=== PATIENT | female | born 1930 | race Caucasian/White ===

== ENCOUNTER 2019-07-15 14:16 | Inpatient (IN) | payer MEDICARE, MEDICAID ==
[~2019-07-15] VITALS: Ht 160 cm; Wt 48.1 kg
--- NOTE | 2019-07-15 14:35 | NUR ---
gonzalo, from snf, failure to thrive x 2 days. Patient a/ox1, breathing even and unlabored, no sob noted. kept comfortable. Will continue to monitor.
[2019-07-15 14:57] LABS: BASOPHILS % (AUTO) 0.7 % (0.0-2.0); EOSINOPHILS % (AUTO) 1.2 % (0.0-6.0); HEMATOCRIT 41 % (33-45); HEMOGLOBIN 13.4 g/dL (11.5-14.8); LYMPHOCYTES # (AUTO) 1.3 /CMM (0.8-4.8); LYMPHOCYTES % (AUTO) 34.3 % (20.0-44.0); MEAN CORPUSCULAR HGB CONC 33 g/dl (31.0-36.0); MEAN CORPUSCULAR VOLUME 90 fL (82-100); MONOCYTES # (AUTO) 0.4 /CMM (0.1-1.30); MONOCYTES % (AUTO) 11.4 % (2.0-12.0); NEUTROPHILS % (AUTO) 52.4 % (43.0-81.0); PLATELET COUNT (AUTO) 193 /CMM (150-450); RED BLOOD CELL COUNT(AUTO) 4.54 MIL/uL (4.0-5.2); WHITE BLOOD COUNT (AUTO) 3.8 K/uL (4.3-11.0)
[2019-07-15] MEDS ORDERED: IV NS 0.9% 500 ML BAG IV ONE (15:00)
[2019-07-15] MEDS ORDERED: NUTR237L18 PO (15:26)
[2019-07-15] MEDS ORDERED: QUET25TA PO (15:26)
[2019-07-15] MEDS ORDERED: NA P133E RC (15:26)
[2019-07-15] MEDS ORDERED: DOCU-141 PO (15:26)
[2019-07-15] MEDS ORDERED: MAGN400O6 PO (15:26)
[2019-07-15] MEDS ORDERED: ASPI-605 PO (15:26)
[2019-07-15] MEDS ORDERED: MULT1TAB73 PO (15:26)
[2019-07-15] MEDS ORDERED: SENN-261 PO (15:26)
[2019-07-15] MEDS ORDERED: ACET-868 PO (15:26)
[2019-07-15] MEDS ORDERED: BISA10SU61 RC (15:26)
[2019-07-15 15:28] LABS: CALCIUM, SERUM 9.2 mg/dL (8.5-10.1); CARBON DIOXIDE 24 mmol/L (21-32); CHLORIDE 104 mmol/L (98-107); CREATININE 0.9 mg/dL (0.6-1.3); GLUCOSE 167 mg/dL (74-106); POTASSIUM 3.6 mmol/L (3.5-5.1); SODIUM SERUM 137 mmol/L (136-145); UREA NITROGEN, BLOOD 18 mg/dL (7-18)
[2019-07-15 15:41] LABS: ALANINE AMINOTRANSFERASE 12 U/L (12-78); ALBUMIN 2.9 g/dL (3.4-5.0); ALKALINE PHOSPHATASE 133 U/L (46-116); ASPARTATE AMINOTRANSFERASE 16 U/L (15-37); B-TYPE NATRIURETIC PEPTIDE 477 PG/ML (0-125); BILIRUBIN,DIRECT 0.1 mg/dL (0.0-0.2); BILIRUBIN,TOTAL 0.3 mg/dL (0.2-1.0); TOTAL PROTEIN, SERUM 6.8 g/dL (6.4-8.2)
--- NOTE | 2019-07-15 16:10 | NUR ---
[facility] paged
--- NOTE | 2019-07-15 16:13 | NUR ---
tele bed requested from nursing research greenhouse supervisor.
[2019-07-15] MEDS ORDERED: MAG HYDROX/AL HYDROX/SIMETH 30 ML UDC PO PRN (16:30)
[2019-07-15] MEDS ORDERED: BISACODYL SUPP (10 MG) 10 MG/SUPP.RECT SUPP.RECT RC PRN (16:30)
[2019-07-15] MEDS ORDERED: HYDROCODONE/APAP 5/325MG 1 EACH TABLET PO PRN (16:30)
[2019-07-15] MEDS ORDERED: ZOLPIDEM TARTRATE 5 MG TABLET PO PRN (16:30)
[2019-07-15] MEDS ORDERED: NA PHOS,M-B/NA PHOS,DI-BA 1 EA ENEMA RC PRN (16:30)
[2019-07-15] MEDS ORDERED: MAGNESIUM HYDROXIDE 30 ML UDC PO PRN ×2 (16:30)
[2019-07-15] MEDS ORDERED: ONDANSETRON HCL/PF 4 MG/2 ML VIAL IVP PRN (16:30)
[2019-07-15] MEDS ORDERED: Z GUARD REMEDY 2 OZ OINT TP PRN (16:30)
[2019-07-15] MEDS ORDERED: ACETAMINOPHEN 325 MG TABLET PO PRN (16:30)
--- NOTE | 2019-07-15 16:41 | NUR ---
NURSING SUP GAVE M/S BED 203.
--- NOTE | 2019-07-15 17:10 | NUR ---
REPORT GIVEN TO SAMMIE DAWSON.
[2019-07-15 17:45] VITALS: BP 116/94
[2019-07-15] MEDS: DOCUSATE SODIUM 100 MG CAPSULE PO SCH (17:47)
[2019-07-15] MEDS: QUETIAPINE FUMARATE 25 MG TABLET PO SCH (17:47)
[2019-07-15] MEDS: ENOXAPARIN SODIUM 40 MG/0.4 ML DISP.SYRIN SQ SCH (17:48)
[2019-07-15] MEDS: PROSOURCE / PROSTAT (PYXIS) 30 ML UDC PO SCH (17:50)
[2019-07-15 18:00] VITALS: BP 116/64
--- NOTE | 2019-07-15 18:00 | NUR ---
MS RN ADMITTING NOTES PT ADMITTED TO UNIT @1715 VIA WHEELCHAIR ACCOMPANIED BY ROSALINDA SALAS. PT ABLE TO WALK WITH ASSISTANCE FROM W/C TO BED. PT IS A/O X1, FARSI SPEAKING AND CONFUSED. PT ORIENTED TO ROOM AND STAFF. V/S TAKEN AND RECORDED. PT ADMITTED WITH DX OF FAILURE TO THRIVE. IV ACCESS NOTED AT RIGHT FA G#20 INTACT, PATENT AND FLUSHES WELL. PT WITH PACEMAKER IN PLACE TO UPPER LEFT CHEST WALL. PHOTOS OF SKIN ISSUES TAKEN AND FILED IN CHART. LUNGS CLEAR ON AUSCULTATION. ABDOMEN SOFT AND NON-TENDER WITH POSITIVE BOWEL SOUNDS ON FOUR QUADRANTS. SAFETY MEASURES INITIATED: BED PLACED IN LOWEST LOCKED POSITION WITH SR UP X2. BED ALARM ON AND CALL LIGHT WITHIN REACH. WILL CONTINUE TO MONITOR PT ACCORDINGLY.
--- NOTE | 2019-07-15 18:48 | NUR ---
MS RN CLOSING NOTES PT IN BED AWAKE AND RESTING AT MODERATE HIGH BACKREST AT THIS TIME. A/O X1, FARSI SPEAKING, CALM AND QUIET AT THIS TIME. PT ORIENTED TO ROOM AND STAFF. V/S TAKEN AND RECORD IV SL ON RIGHT FA G#20 INTACT, PATENT AND FLUSHES WELL. SAFETY MEASURES IN PLACE: BED IN LOWEST LOCKED POSITION WITH SR UP X2. BED ALARM ON AND CALL LIGHT WITHIN REACH. WILL ENDORSE TO SALESFORCE DEVELOPER NURSE FOR DEXTER.
--- NOTE | 2019-07-15 19:30 | NUR ---
RN OPEN NOTES RECEIVED PATIENT RESTING IN BED, EASILY AROUSABLE. A/OX1. NO SIGNS OF DISTRESS OR DISCOMFORT. BREATHING EVEN AND UNLABORED. IV ACCESS IN RFA, PATENT AND INTACT, NO SIGNS OF REDNESS OR INFILTRATION. BED IN LOW LOCKED POSITION WITH SIDE RAILS X2. BED ALARM ON. CALL LIGHT WITHIN REACH. WILL CONTINUE TO MONITOR.
[2019-07-15 20:44] VITALS: BP 112/68
[2019-07-15] MEDS: SENNOSIDES 8.6 MG TABLET PO SCH (21:28)
[2019-07-16 06:23] LABS: BASOPHILS % (AUTO) 0.6 % (0.0-2.0); EOSINOPHILS % (AUTO) 2.1 % (0.0-6.0); HEMATOCRIT 41 % (33-45); HEMOGLOBIN 13.3 g/dL (11.5-14.8); LYMPHOCYTES # (AUTO) 1.3 /CMM (0.8-4.8); LYMPHOCYTES % (AUTO) 35.1 % (20.0-44.0); MEAN CORPUSCULAR HGB CONC 33 g/dl (31.0-36.0); MEAN CORPUSCULAR VOLUME 90 fL (82-100); MONOCYTES # (AUTO) 0.5 /CMM (0.1-1.30); MONOCYTES % (AUTO) 13.1 % (2.0-12.0); NEUTROPHILS # (AUTO) 1.9 /CMM (1.8-8.9); NEUTROPHILS % (AUTO) 49.1 % (43.0-81.0); PLATELET COUNT (AUTO) 184 /CMM (150-450); WHITE BLOOD COUNT (AUTO) 3.8 K/uL (4.3-11.0)
[2019-07-16 07:04] LABS: CALCIUM, SERUM 8.4 mg/dL (8.5-10.1); CREATININE 0.6 mg/dL (0.6-1.3); POTASSIUM 3.7 mmol/L (3.5-5.1)
[2019-07-16 07:23] LABS: THYROID STIMULATING HORMONE 0.878 uIU/mL (0.358-3.74)
--- NOTE | 2019-07-16 07:41 | NUR ---
WOUND CARE CONSULT: PT PRESENTS WITH RT LATERAL ANKLE SCAR, PRESENT ON ADMISSION. PT NOTED TO BE INCONTINENT. RECOMMENDATIONS MADE FOR SKIN PROTECTION. DISCUSSED WITH NURSING STAFF. WILL SEE PRN. LOPEZ IN AGREEMENT WITH PLAN OF CARE. Addendum: 07/16/19 at 0742 by MARICHUY HERNANDEZ WNDNU Amended: Links added.
[2019-07-16 08:00] VITALS: BP 134/73
[2019-07-16 08:56] VITALS: BP 134/73
[2019-07-16] MEDS: PROSOURCE / PROSTAT (PYXIS) 30 ML UDC PO SCH ×3 (09:00→17:00)
[2019-07-16] MEDS: ASPIRIN EC 81 MG TABLET.DR PO SCH (09:12)
[2019-07-16] MEDS: QUETIAPINE FUMARATE 25 MG TABLET PO SCH ×2 (09:12→17:25)
[2019-07-16] MEDS: MULTIVITAMINS,THERAGRAN 1 UDTAB TABLET PO SCH (09:13)
[2019-07-16] MEDS: DOCUSATE SODIUM 100 MG CAPSULE PO SCH ×2 (09:13→17:25)
--- NOTE | 2019-07-16 10:20 | NUR ---
Unable to obtain urine sample due to pt confusion
--- NOTE | 2019-07-16 15:12 | NUR ---
PAtient refused straight catheter, unable to educate due to pt's confusion
[2019-07-16 16:13] VITALS: BP 158/83
--- NOTE | 2019-07-16 18:47 | NUR ---
Patient resting in bed awake , A/Ox1. Breathing unlabored and even on room air, saturating above 96%. All needs attended , safety precautions in place, bed alarm activated. Will endorse to next shift for DEXTER
--- NOTE | 2019-07-16 19:25 | NUR ---
RN OPEN NOTES RECEIVED AWAKE SITTING IN BED. A/OX1. NO SIGNS OF DISTRESS OR DISCOMFORT. BREATHING EVEN AND UNLABORED. IV ACCESS IN RFA, PATENT AND INTACT, NO SIGNS OF REDNESS OR INFILTRATION. BED IN LOW LOCKED POSITION WITH SIDE RAILS X2. BED ALARM ON. CALL LIGHT WITHIN REACH. WILL CONTINUE TO MONITOR.
[2019-07-16 20:32] VITALS: BP 145/69
[2019-07-16] MEDS: ENOXAPARIN SODIUM 40 MG/0.4 ML DISP.SYRIN SQ SCH (21:09)
[2019-07-16] MEDS: SENNOSIDES 8.6 MG TABLET PO SCH (21:09)
[2019-07-17 04:57] LABS: APPEARANCE,URINE CLEAR (CLEAR); BILIRUBIN,URINE NEGATIVE (NEGATIVE); BLOOD, URINE NEGATIVE Ery/uL (NEGATIVE); COLOR,URINE YELLOW (YELLOW); KETONES,URINE TRACE (NEGATIVE); LEUKOCYTE ESTERASE ,URINE NEGATIVE (NEGATIVE); NITRITE, URINE NEGATIVE (NEGATIVE); PROTEIN,URINE NEGATIVE (NEGATIVE); UGLUCOSE NEGATIVE (NEGATIVE)
[2019-07-17 05:03] LABS: BACTERIA,URINE Few /HPF (None Seen); RBC,URINE 0-2 /HPF (0-2); SQUAMOUS EPITHELIAL CELL,UR Few /HPF (None Seen)
--- NOTE | 2019-07-17 06:36 | NUR ---
RN CLOSING NOTES PATIENT RESTING IN BED, EASILY AROUSABLE. A/OX1. NO SIGNS OF DISTRESS OR DISCOMFORT. BREATHING EVEN AND UNLABORED. IV ACCESS IN RFA, PATENT AND INTACT, NO SIGNS OF REDNESS OR INFILTRATION. ALL NEEDS MET. NO SIGNIFICANT CHANGES THROUGH THE NIGHT. PATIENT KEPT CLEAN DRY AND COMFORTABLE. BED IN LOW LOCKED POSITION WITH SIDE RAILS X2. BED ALARM ON. CALL LIGHT WITHIN REACH. WILL ENDORSE TO AM SHIFT FOR DEXTER.
--- NOTE | 2019-07-17 07:30 | NUR ---
RN MS NOTES PT IN BED, AWAKE, ALERT AND VERBALLY RESPONSIVE, DENIES PAIN, NOT IN DISTRESS, ASSISTED WITH BREAKFAST, CALL LIGHT WITHIN REACH, NEEDS ATTENDED.
[2019-07-17 08:00] VITALS: BP 128/54
[2019-07-17] MEDS: MULTIVITAMINS,THERAGRAN 1 UDTAB TABLET PO SCH (08:34)
[2019-07-17] MEDS: DOCUSATE SODIUM 100 MG CAPSULE PO SCH ×2 (08:34→16:56)
[2019-07-17] MEDS: ASPIRIN EC 81 MG TABLET.DR PO SCH (08:34)
[2019-07-17] MEDS: QUETIAPINE FUMARATE 25 MG TABLET PO SCH ×2 (08:35→16:56)
[2019-07-17] MEDS: PROSOURCE / PROSTAT (PYXIS) 30 ML UDC PO SCH ×3 (08:40→17:00)
--- NOTE | 2019-07-17 10:52 | NUR ---
RN MS NOTES PT SEEN BY PHYSICAL THERAPIST, ABLE TO AMBULATE WITH A WALKER ALONG THE HALLWAY, TOLERATED WELL.
[2019-07-17] MEDS: ENSURE ENLIVE 237 ML LIQUID (VANILLA) PO SCH ×2 (12:39→16:56)
--- NOTE | 2019-07-17 15:23 | NUR ---
RN MS NOTES PT IN BED, RESTING, ALERT TO SELF, VERBALLY RESPONSIVE, NOT IN DISTRESS, WITH POOR PO INTAKE, DR. CH INFORMED, ORDERED PSYCH CONSULT, NOTED AND CARRIED OUT.
[2019-07-17 16:00] VITALS: BP 135/69
--- NOTE | 2019-07-17 18:21 | NUR ---
RN MS NOTES PT IN BED, RESTING, AWAKE, ALERT TO SELF, NO SIGN OF PAIN OR DISTRESS, CALL LIGHT WITHIN REACH, ENCOURAGED PO INTAKE, ABLE TO EAT SOME, FLUIDS ENCOURAGED, PM CARE PROVIDED, NEEDS ATTENDED.
--- NOTE | 2019-07-17 19:05 | NUR ---
MS RN NOTE RECEIVED PT IN STABLE CONDITION A/O X 1-2, NOTED IN BED, NO SIGNS OF SOB OR DISTRESS, NO INDICATIONS PAIN OR N/V. IV IN RFA #[address] S/L. ALL CURRENT NEEDS ATTENDED TO. BED LOW, LOCKED, UPPER RAILS UP, AND CALL LIGHT WITHIN REACH. WILL CONT. TO MONITOR.
[2019-07-17] MEDS: ENOXAPARIN SODIUM 40 MG/0.4 ML DISP.SYRIN SQ SCH (21:11)
[2019-07-17] MEDS: SENNOSIDES 8.6 MG TABLET PO SCH (21:11)
--- NOTE | 2019-07-18 06:26 | NUR ---
MS RN NOTE PT REMAINS IN STABLE CONDITION A/O X 1-2, NOTED IN BED, NO SIGNS OF SOB OR DISTRESS, NO INDICATIONS PAIN OR N/V. IV IN RFA #[address] S/L. ALL CURRENT NEEDS ATTENDED TO. BED LOW, LOCKED, UPPER RAILS UP, AND CALL LIGHT WITHIN REACH. WILL CONT. TO MONITOR AND ENDORSE TO NEXT SHIFT FOR DEXTER
--- NOTE | 2019-07-18 07:39 | NUR ---
MS RN OPENING NOTE PATIENT IN BED RESTING COMFORTABLY. PATIENT IN NO ACUTE DISTRESS. NO SOB NOTED. PATIENT BREATHING IS EVEN AND UNLABORED. PATIENT BED ALARM IS ON. SAFETY PRECAUTIONS IN PLACE. PATIENT BED IS LOCKED AND IN LOWEST POSITION. CALL LIGHT WITHIN REACH. WILL CONTINUE TO MONITOR.
[2019-07-18 07:55] VITALS: BP 140/68
[2019-07-18] MEDS: QUETIAPINE FUMARATE 25 MG TABLET PO SCH ×2 (08:47→16:19)
[2019-07-18] MEDS: PROSOURCE / PROSTAT (PYXIS) 30 ML UDC PO SCH ×3 (08:48→16:19)
[2019-07-18] MEDS: DOCUSATE SODIUM 100 MG CAPSULE PO SCH ×2 (08:48→16:19)
[2019-07-18] MEDS: MULTIVITAMINS,THERAGRAN 1 UDTAB TABLET PO SCH (08:48)
[2019-07-18] MEDS: ENSURE ENLIVE 237 ML LIQUID (VANILLA) PO SCH ×3 (08:48→16:19)
[2019-07-18] MEDS: ASPIRIN EC 81 MG TABLET.DR PO SCH (08:48)
[2019-07-18 16:00] VITALS: BP 135/77
--- NOTE | 2019-07-18 17:20 | NUR ---
MS PHOTORADIO OPERATOR NOTE PATIENT MEDICALLY STABLE FOR DISCHARGE. PATIENT IN NO ACUTE DISTRESS. NO SOB NOTED. PATIENT BREATHING IS EVEN AND UNLABORED. PATIENT VITAL SIGNS WNL. DC INSTRUCTIONS PROVIDED. PATIENT UNABLE TO COMPREHEND. DC PAPERWORK SIGNED BY TWO NURSES. PATIENT BELONGINGS LIST SIGNED BY TWO NURSES. PATIENT HAS BELONGINGS WITH HER. PATIENT IV REMOVED. ID BAND REMOVED. PATIENT SKIN ASSESSED. NO NEW SKIN BREAKDOWN NOTED. PATIENT KEPT CLEAN, DRY AND COMFORTABLE THROUGHOUT SHIFT. REPORT GIVEN TO ANUM DAWSON AT [facility]. PATIENT GOING BY GURNEY TO AMBULANCE BACK TO SNF. REPORT GIVEN TO DREDGE MECHANIC. MD AWARE OF DISCHARGE.
[2019-07-18] MEDS ORDERED: MIRTAZAPINE 15 MG TABLET PO SCH (22:00)
== END 2019-07-18 17:20 | DRG 640 ==
LOC: ER 14:18 → MEDSG2 16:45
PROVIDERS: ATTEND Internal Medicine
DX: R62.7 Adult failure to thrive (principal); G93.41 Metabolic encephalopathy; E44.0 Moderate protein-calorie malnutrition; Z68.1 Body mass index [BMI] 19.9 or less, adult; F03.90 Unspecified dementia, unspecified severity, without behavioral disturbance, psychotic disturbance, mood disturbance, and anxiety; E78.5 Hyperlipidemia, unspecified; J45.909 Unspecified asthma, uncomplicated; M19.90 Unspecified osteoarthritis, unspecified site; F29 Unspecified psychosis not due to a substance or known physiological condition; Z66 Do not resuscitate; R53.1 Weakness; R53.81 Other malaise; I10 Essential (primary) hypertension; F32.9 Major depressive disorder, single episode, unspecified
CPT/HCPCS: 36415; 71045-TC; 80048-TC; 80061-TC; 80076-TC; 81000-TC; 83735-TC; 83880; 84100-TC; 84443-TC; 84484-TC; 85025-TC; 85730-TC; 86850-TC; 87081-TC; 87086-TC; 97112-TC; 97116-TC; 97530-TC; G0378; J1650; J7040